=== PATIENT | male | born 1965 | race Caucasian/White ===

== ENCOUNTER 2022-06-30 11:02 | Emergency (ER) | payer OTHER ==
[2022-06-30 12:21] VITALS: BP 153/92
[2022-06-30 12:31] VITALS: BP 147/97
[2022-06-30 12:45] VITALS: BP 135/89
[2022-06-30 13:47] LABS: URINE BILIRUBIN - DIPSTICK NEGATIVE (NEGATIVE); URINE BLOOD DIPSTICK NEGATIVE (NEGATIVE); URINE CLARITY CLEAR; URINE COLOR YELLOW; URINE GLUCOSE - DIPSTICK NEGATIVE (NEGATIVE); URINE KETONE TRACE mg/dL (NEGATIVE); URINE LEUK ESTERASE NEGATIVE (Negative); URINE NITRITE - DIPSTICK NEGATIVE (Negative); URINE PROTEIN - DIPSTICK NEGATIVE (NEG-TRACE); URINE UROBILINOGEN - DIPSTICK 0.2 E.U./dL (0.2)
[2022-06-30 13:50] LABS: BASO% 0.2 % (0-3); EOS% 8.3 % (0-8); HEMATOCRIT 44.6 % (39.0-50.0); IMMATURE GRANULOCYTES 0.1 % (0.0-5.0); LYMPH% 11.8 % (15-41); MEAN CELL VOLUME 90.8 fL CALC (80.0-100.0); MEAN CORPUSCULAR HGB 30.5 pG CALC (26.0-32.0); MEAN CORPUSCULAR HGB CONC 33.6 g/dL CAL (32.0-36.0); MONO% 11.2 % (2-13); NEUT# 11.23 thou/uL (1.82-7.42); NEUT% 68.4 % (42-76); RED BLOOD COUNT 4.91 mill/uL (4.70-6.10); RED CELL DISTRI WIDTH 12.7 % (11.5-15.5)
[2022-06-30 13:56] LABS: ALBUMIN 4.5 g/dL (3.2-5.0); ALKALINE PHOSPHATASE 70 u/l (38-126); ANION GAP 12 (6-22 (CALC)); BILIRUBIN, TOTAL 0.6 mg/dL (0.2-1.3); BUN 9 mg/dL (9-20); BUN/CREATININE RATIO 15 (12-20 (CALC)); CARBON DIOXIDE 28 mmol/l (22-30); CHLORIDE 94 mmol/l (95-108); CREATININE 0.6 mg/dL (0.7-1.3); GFR FOR AFR.AMER. > 60 ML/MIN (>=60 (CALC)); GFR OTHER RACES > 60 ML/MIN (>=60 (CALC)); POTASSIUM 3.9 mmol/l (3.5-5.1); SGOT/AST 37 u/l (17-59); SODIUM 130 mmol/l (137-146); TOTAL PROTEIN 7.4 g/dL (6.3-8.2)
[2022-06-30 16:13] VITALS: BP 135/89
[2022-06-30] MEDS ORDERED: DECADRON4 MG PO (16:22)
[2022-06-30] MEDS ORDERED: KEFLEX500 MG PO (16:22)
== END 2022-06-30 16:44 | disposition home or self-care (01) | DRG 607 ==
LOC: ED 11:02
PROVIDERS: Emergency Medicine
DX: L30.9 Dermatitis, unspecified (principal); I10 Essential (primary) hypertension

== ENCOUNTER 2023-06-29 14:08 | Emergency (ER) | payer OTHER ==
[~2023-06-29 14:08] MED LIST: DECADRON4 MG PO; KEFLEX500 MG PO
[2023-06-29 14:55] LABS: BASO% 0.3 % (0-3); EOS% 2.5 % (0-8); HEMATOCRIT 45.5 % (39.0-50.0); HEMOGLOBIN 14.9 g/dl (14.0-18.0); IMMATURE GRANULOCYTES 0.2 % (0.0-5.0); LYMPH% 18.1 % (15-41); MEAN CELL VOLUME 92.3 fL CALC (80.0-100.0); MEAN CORPUSCULAR HGB 30.2 pG CALC (26.0-32.0); MEAN CORPUSCULAR HGB CONC 32.7 g/dL CAL (32.0-36.0); MONO% 12.8 % (2-13); NEUT# 8.75 thou/uL (1.82-7.42); NEUT% 66.1 % (42-76); RED BLOOD COUNT 4.93 mill/uL (4.70-6.10); RED CELL DISTRI WIDTH 12.6 % (11.5-15.5)
[2023-06-29 15:11] LABS: ALBUMIN 4.8 g/dL (3.2-5.0); ALKALINE PHOSPHATASE 60 u/l (38-126); BUN 10 mg/dL (9-20); BUN/CREATININE RATIO 9 (12-20 (CALC)); CHLORIDE 105 mmol/l (95-108); ETHYL ALCOHOL 188 mg/dl (0-30); GFR FOR AFR.AMER. > 60 ML/MIN (>=60 (CALC)); GFR OTHER RACES > 60 ML/MIN (>=60 (CALC)); POTASSIUM 3.7 mmol/l (3.5-5.1); SGOT/AST 33 u/l (17-59)
[2023-06-29 15:13] LABS: ANION GAP 19 (6-22 (CALC)); CARBON DIOXIDE 22 mmol/l (22-30); SODIUM 142 mmol/l (137-146)
[2023-06-29 15:39] VITALS: BP 112/67
[2023-06-29 15:45] VITALS: BP 130/65
[2023-06-29 16:01] VITALS: BP 118/67
[2023-06-29 16:13] LABS: URINE BILIRUBIN - DIPSTICK Negative (NEGATIVE); URINE BLOOD DIPSTICK Negative (NEGATIVE); URINE GLUCOSE - DIPSTICK Negative (NEGATIVE); URINE KETONE Negative (NEGATIVE); URINE LEUK ESTERASE Negative (NEGATIVE); URINE NITRITE - DIPSTICK Negative (Negative); URINE PROTEIN - DIPSTICK Negative (NEG-TRACE); URINE UROBILINOGEN - DIPSTICK 0.2 E.U./dL (0.2)
[2023-06-29 16:16] VITALS: BP 94/70
[2023-06-29 16:16] LABS: URINE COLOR Yellow
[2023-06-29 20:08] VITALS: BP 136/78
[2023-06-29 21:43] VITALS: BP 136/78
== END 2023-06-29 21:57 | DRG 885 ==
LOC: ED 14:08
PROVIDERS: Emergency Medicine
DX: F20.9 Schizophrenia, unspecified (principal); L98.8 Other specified disorders of the skin and subcutaneous tissue; I10 Essential (primary) hypertension